=== PATIENT | female | born 1955 | race African-American/Black ===

== ENCOUNTER 2020-11-25 12:22 | Emergency (ER) | payer OTHER ==
[~2020-11-25] VITALS: Ht 172.7 cm; Wt 75.0 kg
[~2020-11-25 12:22] MED LIST: OLME20TA13
[2020-11-25] MEDS ORDERED: ACETAMINOPHEN WITH CODEINE 300/30MG TABLET PO ONE (13:00)
[2020-11-25] MEDS ORDERED: T3 PO (13:57)
[2020-11-25 14:25] VITALS: BP 157/91
== END 2020-11-25 14:26 | disposition home or self-care (01) ==
LOC: ER 12:51
DX: S83.8X2A Sprain of other specified parts of left knee, initial encounter (principal); W18.49XA Other slipping, tripping and stumbling without falling, initial encounter; Y93.89 Activity, other specified; Y92.89 Other specified places as the place of occurrence of the external cause; M17.12 Unilateral primary osteoarthritis, left knee; Z96.652 Presence of left artificial knee joint
CPT/HCPCS: 73562; 99283

== ENCOUNTER 2021-08-22 20:03 | Emergency (ER) | payer OTHER ==
[~2021-08-22] VITALS: Ht 170.2 cm; Wt 68.0 kg
[~2021-08-22 20:03] MED LIST changes: +T3 PO
[2021-08-22] MEDS ORDERED: ACETAMINOPHEN WITH CODEINE 300/30MG TABLET PO ONE (23:45)
[2021-08-23] MEDS ORDERED: T3 PO (01:57)
[2021-08-23 02:00] VITALS: BP 157/94
== END 2021-08-23 02:00 | disposition home or self-care (01) ==
LOC: ER 20:03
DX: S09.8XXA Other specified injuries of head, initial encounter (principal); S00.11XA Contusion of right eyelid and periocular area, initial encounter; H11.31 Conjunctival hemorrhage, right eye; I10 Essential (primary) hypertension; W10.8XXA Fall (on) (from) other stairs and steps, initial encounter; Y93.01 Activity, walking, marching and hiking; Y92.89 Other specified places as the place of occurrence of the external cause; Z91.02 Food additives allergy status; Z98.84 Bariatric surgery status
CPT/HCPCS: 70486; 99285

== ENCOUNTER 2024-06-25 17:23 | Emergency (ER) | payer OTHER ==
[~2024-06-25] VITALS: Ht 170.2 cm; Wt 70.0 kg
[2024-06-25 17:31] VITALS: O2SAT 98
[2024-06-25] MEDS: IBUPROFEN 800MG TABLET PO ONE (18:15)
[2024-06-25] MEDS ORDERED: ACET-2708 MT (19:34)
[2024-06-25] MEDS ORDERED: IBUP-2029 MT (19:34)
[2024-06-25] MEDS ORDERED: T3 PO ×2 (19:43→19:50)
[2024-06-25 19:45] VITALS: TEMP 36.66960; O2SAT 100
[2024-06-25 20:07] VITALS: BP 169/90; PULSE 70; RESP 18
[2024-06-25] MEDS: ACETAMINOPHEN WITH CODEINE 300/30MG TABLET PO ONE (20:07)
== END 2024-06-25 20:05 | disposition home or self-care (01) ==
LOC: ER 17:23
DX: M25.532 Pain in left wrist (principal); I10 Essential (primary) hypertension; Z79.899 Other long term (current) drug therapy; W18.30XA Fall on same level, unspecified, initial encounter; Y93.89 Activity, other specified; Y92.89 Other specified places as the place of occurrence of the external cause; Y99.8 Other external cause status
CPT/HCPCS: 29125; 73110; 99283